=== PATIENT | male | born 1985 | race Caucasian/White ===

== ENCOUNTER 2022-12-18 20:25 | Emergency (ER) | payer OTHER ==
[2022-12-18 20:39] VITALS: RESP 16
[2022-12-18] MEDS ORDERED: SODIUM CHLORIDE 0.9% 1,000 ML IV STA ×2 (21:05)
[2022-12-18] MEDS ORDERED: THIAMINE 100 MG/ML 2 ML VIAL IM STA (21:06)
[2022-12-18] MEDS ORDERED: LORazepam 2 MG/ML INJ IV PRN ×4 (21:06)
--- NOTE | 2022-12-18 21:06 | ED ---
Seizure HPI - General Chief Complaint: Seizure Stated Complaint: Seizure Time Seen by Provider: 12/18/22 20:29 Source: patient, EMS, RN notes reviewed, old records reviewed Mode of arrival: EMS Limitations: no limitations - History of Present Illness Initial Comments: This is a 37-year-old male who presents by EMS for evaluation of seizure patient had seizure activity prior to arrival hospital. Patient's brought by EMS from [place] for evaluation. Patient has some lightheadedness dizziness weakness and hasn't felt well. MD Complaint: seizure, possible seizure -: days(s) Description of Episode: loss of consciousness, tonic-clonic movement -: second(s) Witnessed: yes - by bystander Trauma: Yes Seizure History: history of withdrawal seizures Place: home Associated Symptoms: denies other symptoms Treatments Prior to Arrival: none - Related Data Home Medications Medication Instructions Recorded Confirmed Acetaminophen [Tylenol] 650 mg PO Q4H PRN 12/18/22 12/19/22 Calcium/Magnesium/Zinc/Vitamin D 1 tab PO TID PRN 12/18/22 12/19/22 Chlorpheniramine Maleate 4 mg PO Q4H PRN 12/18/22 12/19/22 [Chlor-Trimeton] Docusate [Colace] 100 mg PO BID PRN 12/18/22 12/19/22 Hyoscyamine Sulfate [Levsin] 0.125 mg PO QID PRN 12/18/22 12/19/22 Ibuprofen [Motrin Ib] 600 mg PO Q6H PRN 12/18/22 12/19/22 LORazepam [Ativan] See Taper PO DIRECTED 12/18/22 12/19/22 Loperamide [Imodium] 4 mg PO QID PRN 12/18/22 12/19/22 Mag Hydrox/Aluminum Hyd/Simeth 30 ml PO Q4H PRN 12/18/22 12/19/22 [Mylanta Maximum Strength Liq] Magnesium Hydroxide [Milk of 2,400 mg PO BID PRN 12/18/22 12/19/22 Magnesia] Multivitamins, Thera [Multivitamin 1 tab PO DAILY 12/18/22 12/19/22 (formulary)] Thiamine [Vitamin B-1] 100 mg PO DAILY 12/18/22 12/19/22 guaiFENesin SYRUP 100MG/5ML 200 mg PO Q4H PRN 12/18/22 12/19/22 [Robitussin] ondansetron HCL [Zofran] 8 mg PO Q6H PRN 12/18/22 12/19/22 traZODone HCL [Desyrel] 50 - 150 mg PO HS PRN 12/18/22 12/19/22 Previous Rx's Medication Instructions Recorded Acetaminophen Tab [Tylenol] 650 mg PO Q6HR PRN tab 12/20/22 levETIRAcetam [Keppra] 500 mg PO Q12HR #24 tab 12/20/22 Allergies Allergy/AdvReac Type Severity Reaction Status Date / Time penicillin G Allergy Unknown Verified 12/19/22 10:23 Penicillins Allergy Swelling Verified 12/19/22 10:23 Review of Systems ROS Statement: Those systems with pertinent positive or pertinent negative responses have been documented in the HPI. ROS Other: All systems not noted in ROS Statement are negative. Past Medical History Past Medical History: No Reported History Past Surgical History: No Surgical Hx Reported Smoking Status: Current every day smoker Past Alcohol Use History: Daily General Exam Limitations: no limitations General appearance: alert, in no apparent distress Head exam: Present: atraumatic, normocephalic, normal inspection Eye exam: Present: normal appearance, PERRL, EOMI. Absent: scleral icterus, conjunctival injection, periorbital swelling ENT exam: Present: normal exam, mucous membranes moist Neck exam: Present: normal inspection. Absent: tenderness, meningismus, lymphadenopathy Respiratory exam: Present: normal lung sounds bilaterally. Absent: respiratory distress, wheezes, rales, rhonchi, stridor Cardiovascular Exam: Present: regular rate, normal rhythm, normal heart sounds. Absent: systolic murmur, diastolic murmur, rubs, gallop, clicks GI/Abdominal exam: Present: soft, normal bowel sounds. Absent: distended, t enderness, guarding, rebound, rigid Extremities exam: Present: normal inspection, full ROM, normal capillary refill. Absent: tenderness, pedal edema, joint swelling, calf tenderness Back exam: Present: normal inspection Neurological exam: Present: alert, oriented X3, CN II-XII intact Psychiatric exam: Present: normal affect, normal mood Skin exam: Present: warm, dry, intact, normal color. Absent: rash Course Vital Signs 12/18/22 12/18/22 20:26 22:58 Temperature 97.8 F 98.0 F Pulse Rate 75 73 Respiratory 16 16 Rate Blood Pressure 116/71 106/71 O2 Sat by Pulse 100 98 Oximetry - Reevaluation(s) Reevaluation #1: 12/18/22 21:08 Medical records reviewed Reevaluation #2: 12/18/22 22:53 Patient has no recurrent seizure here in the ER feels well does not want admission prefers discharge Reevaluation #3: 12/18/22 22:53 Patient informed results questions answered Reevaluation #4: 12/18/22 21:08 Was pt. sent in by a medical professional or institution (, JULIAN, MANAGER CT, urgent care, hospital, or snf...) When possible be specific @ -no Did you speak to anyone other than the patient for history (EMS, parent, family, police, friend...)? What history was obtained from this source @ -no Did you review nursing and triage notes (agree or disagree)? Why? @ -agree Are old charts reviewed (outside hosp., previous admission, EMS record, old EKG, old radiological studies, urgent care reports/EKG's, snf records)? Report findings @ -yes Differential Diagnosis (chest pain, altered mental status, abdominal pain women, abdominal pain men, vaginal bleeding, weakness, fever, dyspnea, syncope, headache, dizziness, GI bleed, back pain, seizure, CVA, palpatations, mental health, musculoskeletal)? @ -prior EKG interpreted by me (3pts min.). @ -yes X-rays interpreted by me (1pt min.). @ -no CT interpreted by me (1pt min.). @ -no U/S interpreted by me (1pt. min.). @ -no What testing was considered but not performed or refused? (CT, X-rays, U/S, labs)? Why? @ -none What meds were considered but not given or refused? Why? @ -none Did you discuss the management of the patient with other professionals (professionals i.e. JULIAN Islas, MANAGER CT, lab, RT, psych nurse, perinatal social worker, community health nurse staff, teacher, program officer, correctional case manager)? Give summary @ -no Was smoking cessation discussed for >3mins.? @ -no Was critical care preformed (if so, how long)? @ -no Were there social determinants of health that impacted care today? How? (Homelessness, low income, unemployed, alcoholism, drug addiction, transportation, low edu. Level, literacy, decrease access to med. care, care home, rehab)? @ -none Was there de-escalation of care discussed even if they declined (Discuss DNR or withdrawal of care, Hospice)? DNR status @ -no What co-morbidities impacted this encounter? (DM, HTN, Smoking, COPD, CAD, Cancer, CVA, ARF, Chemo, Hep., AIDS, mental health diagnosis, sleep apnea, morbid obesity)? @ -none Was patient admitted / discharged? Hospital course, mention meds given and route, prescriptions, significant lab abnormalities, going to OR and other pertinent info. @ - 37 male to the emergency department for evaluation withdrawal seizure. Patient has no recurrent seizure here in the ER feels well throughout ER stay. Lab testing shows normal electrolytes, no balance patient can be discharged home Discharge Undiagnosed new problem with uncertain prognosis? @ -no Drug Therapy requiring intensive monitoring for toxicity (Heparin, Nitro, Insulin, Cardizem)? @ -no Were any procedures done? @ -no Diagnosis/symptom? @ -Recurrent seizure Acute, or Chronic, or Acute on Chronic? @ -Acute Uncomplicated (without systemic symptoms) or Complicated (systemic symptoms)? @ -Complicated Side effects of treatment? @ -no Exacerbation, Progression, or Severe Exacerbation? @ -exacerbation Poses a threat to life or bodily function? How? (Chest pain, [place], [place], pneumonia, PE, COPD, DKA, ARF, appy, cholecystitis, CVA, Diverticulitis, Homicidal, Suicidal, threat to staff... and all critical care pts) @ -yes intractable seizure disorder with status epilepticus Reevaluation #5: 12/18/22 21:08 Differential Seizure: Recurrent seizure disorder, febrile seizure, alcohol withdrawal, stimulants, meningitis, encephalitis, intercranial hemorrhage, intracranial tumor, stroke, eclampsia, thyrotoxicosis, hypocalcemia, hyponatremia, hypernatremia, hypomagnesemia, psychogenic, this is not meant to be an all-inclusive list. Medical Decision Making - Medical Decision Making 37 male to the emergency department for evaluation withdrawal seizure. Patient has no recurrent seizure here in the ER feels well throughout ER stay. Lab testing shows normal electrolytes, no balance patient can be discharged home - Lab Data Result diagrams: 12/18/22 21:23 12/18/22 21:23 Lab Results 12/18/22 12/18/22 Range/Units 21:23 21:23 WBC 13.1 H (3.8-10.6) k/uL RBC 3.30 L (4.30-5.90) m/uL Hgb 12.1 L (13.0-17.5) gm/dL Hct 35.8 L (39.0-53.0) % MCV 108.5 H (80.0-100.0) fL MCH 36.6 H (25.0-35.0) pg MCHC 33.7 (31.0-37.0) g/dL RDW 13.9 (11.5-15.5) % Plt Count 193 (150-450) k/uL MPV 8.0 Neutrophils % 73 % Lymphocytes % 18 % Monocytes % 6 % Eosinophils % 1 % Basophils % 0 % Neutrophils # 9.6 H (1.3-7.7) k/uL Lymphocytes # 2.4 (1.0-4.8) k/uL Monocytes # 0.8 (0-1.0) k/uL Eosinophils # 0.1 (0-0.7) k/uL Basophils # 0.0 (0-0.2) k/uL Manual Slide Review Performed Macrocytosis Marked A Sodium 138 (137-145) mmol/L Potassium 3.8 (3.5-5.1) mmol/L Chloride 103 (98-107) mmol/L Carbon Dioxide 26 (22-30) mmol/L Anion Gap 9 mmol/L BUN 12 (9-20) mg/dL Creatinine 0.76 (0.66-1.25) mg/dL Est GFR (CKD-EPI)AfAm >90 (>60 ml/min/1.73 sqM) Est GFR (CKD-EPI)NonAf >90 (>60 ml/min/1.73 sqM) Glucose 123 H (74-99) mg/dL Calcium 9.6 (8.4-10.2) mg/dL Phosphorus 2.6 (2.5-4.5) mg/dL Magnesium 2.1 (1.6-2.3) mg/dL Total Bilirubin 0.3 (0.2-1.3) mg/dL AST 61 H (17-59) U/L ALT 38 (4-49) U/L Alkaline Phosphatase 80 (38-126) U/L Total Protein 7.5 (6.3-8.2) g/dL Albumin 4.1 (3.5-5.0) g/dL Lipase 153 (23-300) U/L Serum Alcohol <10 mg/dL - EKG Data -: EKG Interpreted by Me (EKG is sinus 72 [place] 173 QRS 74 QTc 414) Disposition Clinical Impression: Intractable seizure disorder, Epileptic seizure, generalized, Withdrawal seizures Disposition: HOME SELF-CARE Condition: Good Instructions (If sedation given, give patient instructions): Seizure/Epilepsy Discharge Instructions & Follow-Up Is patient prescribed a controlled substance at d/c from ED?: No Referrals: None,Stated [Primary Care Provider] - 1-2 days Time of Disposition: 22:50
[2022-12-18 21:58] LABS: ALT 38 U/L (4-49); AST 61 U/L (17-59); African American GFR (CKD) >90 (>60 ml/min/1.73 sqM); Albumin 4.1 g/dL (3.5-5.0); Alcohol <10 mg/dL; Alkaline Phosphatase 80 U/L (38-126); Anion Gap 9 mmol/L; Blood Urea Nitrogen 12 mg/dL (9-20); Calcium 9.6 mg/dL (8.4-10.2); Carbon Dioxide 26 mmol/L (22-30); Chloride 103 mmol/L (98-107); Glucose 123 mg/dL (74-99); Lipase 153 U/L (23-300); Magnesium 2.1 mg/dL (1.6-2.3); Non-African American GFR(CKD) >90 (>60 ml/min/1.73 sqM); Phosphorus 2.6 mg/dL (2.5-4.5); Potassium 3.8 mmol/L (3.5-5.1); Sodium 138 mmol/L (137-145); Total Bilirubin 0.3 mg/dL (0.2-1.3); Total Protein 7.5 g/dL (6.3-8.2)
[2022-12-18 22:26] LABS: Basophils % (A) 0 %; Eosinophils # (A) 0.1 k/uL (0-0.7); Eosinophils % (A) 1 %; HCT 35.8 % (39.0-53.0); HGB 12.1 gm/dL (13.0-17.5); Lymphocytes # (A) 2.4 k/uL (1.0-4.8); Lymphocytes % (A) 18 %; MCH 36.6 pg (25.0-35.0); MCHC 33.7 g/dL (31.0-37.0); MCV 108.5 fL (80.0-100.0); Macrocytosis Marked; Monocytes # (A) 0.8 k/uL (0-1.0); Monocytes % (A) 6 %; Neutrophils # (A) 9.6 k/uL (1.3-7.7); Neutrophils % (A) 73 %; Platelet Count 193 k/uL (150-450); RDW 13.9 % (11.5-15.5); WBC 13.1 k/uL (3.8-10.6)
[2022-12-18 23:03] VITALS: BP 106/71; PULSE 73; TEMP 98
[2022-12-19] MEDS ORDERED: FOLIC ACID 1 MG TAB PO SCH (09:00)
[2022-12-19] MEDS ORDERED: THIAMINE 100 MG TAB PO SCH (09:00)
[2022-12-19] MEDS ORDERED: MULTIVITAMINS, THERA 1 EACH TAB PO SCH (09:00)
== END 2022-12-18 23:03 | disposition home or self-care (01) ==
LOC: EC 20:25
DX: G40.419 Other generalized epilepsy and epileptic syndromes, intractable, without status epilepticus (principal); F17.200 Nicotine dependence, unspecified, uncomplicated; Z88.0 Allergy status to penicillin
CPT/HCPCS: 36415; 93005; 80053; 83690; 83735; 84100; 85025; 99285; 96360; 96372; G0480; J3411; 80320

== ENCOUNTER 2022-12-19 08:43 | Observation (INO) | payer OTHER ==
[2022-12-19] MEDS ORDERED: SODIUM CHLORIDE 0.9% 500 ML 500 ML IV STA (08:47)
--- NOTE | 2022-12-19 08:51 | ED ---
General Adult HPI - General Stated complaint: Seizure Time Seen by Provider: 12/19/22 08:45 Source: patient, EMS, RN notes reviewed, old records reviewed Mode of arrival: EMS Limitations: no limitations - History of Present Illness Initial comments: 37-year-old male presents emergency Department from [place] via EMS for recurrent seizure. Patient states only has seizures when he withdraws from alcohol. Patient was seen here yesterday and released was advised to start Ke ppra patient was not started on Keppra and had recurrent seizure. Patient does complain of right-sided facial injury, head injury from the seizure.. Patient states she's been on Ativan at [place] but states that is not helping. - Related Data Home Medications Medication Instructions Recorded Confirmed Acetaminophen [Tylenol] 650 mg PO Q4H PRN 12/18/22 12/18/22 Calcium/Magnesium/Zinc/Vitamin D 1 tab PO TID PRN 12/18/22 12/18/22 Chlorpheniramine Maleate 4 mg PO Q4H PRN 12/18/22 12/18/22 [Chlor-Trimeton] Docusate [Colace] 100 mg PO BID PRN 12/18/22 12/18/22 Hyoscyamine Sulfate [Levsin] 0.125 mg PO QID PRN 12/18/22 12/18/22 Ibuprofen [Motrin Ib] 600 mg PO Q6H PRN 12/18/22 12/18/22 LORazepam [Ativan] See Taper PO DIRECTED 12/18/22 12/18/22 Loperamide [Imodium] 4 mg PO QID PRN 12/18/22 12/18/22 Mag Hydrox/Aluminum Hyd/Simeth 30 ml PO Q4H PRN 12/18/22 12/18/22 [Mylanta Maximum Strength Liq] Magnesium Hydroxide [Milk of 2,400 mg PO BID PRN 12/18/22 12/18/22 Magnesia] Multivitamins, Thera [Multivitamin 1 tab PO DAILY 12/18/22 12/18/22 (formulary)] Thiamine [Vitamin B-1] 100 mg PO DAILY 12/18/22 12/18/22 guaiFENesin SYRUP 100MG/5ML 200 mg PO Q4H PRN 12/18/22 12/18/22 [Robitussin] ondansetron HCL [Zofran] 8 mg PO Q6H PRN 12/18/22 12/18/22 traZODone HCL [Desyrel] 50 - 100 mg PO HS PRN 12/18/22 12/18/22 Allergies Allergy/AdvReac Type Severity Reaction Status Date / Time penicillin G Allergy Unknown Verified 12/19/22 08:56 Penicillins Allergy Swelling Verified 12/19/22 08:56 Review of Systems ROS Statement: Those systems with pertinent positive or pertinent negative responses have been documented in the HPI. ROS Other: All systems not noted in ROS Statement are negative. Past Medical History Past Medical History: No Reported History Past Surgical History: No Surgical Hx Reported Smoking Status: Current every day smoker Past Alcohol Use History: Daily General Exam Limitations: no limitations General appearance: alert, in no apparent distress Head exam: Present: atraumatic, normocephalic. Absent: normal inspection (Abrasion, tenderness right side) Eye exam: Present: normal appearance, PERRL, EOMI. Absent: scleral icterus, conjunctival injection, periorbital swelling ENT exam: Present: normal exam, normal oropharynx, mucous membranes moist Neck exam: Present: normal inspection, full ROM. Absent: tenderness, meningismus, lymphadenopathy Respiratory exam: Present: normal lung sounds bilaterally. Absent: respiratory distress, wheezes, rales, rhonchi, stridor Cardiovascular Exam: Present: regular rate, normal rhythm, normal heart sounds. Absent: systolic murmur, diastolic murmur, rubs, gallop, clicks Neurological exam: Present: alert, oriented X3, CN II-XII intact, reflexes normal. Absent: motor sensory deficit Course Vital Signs 12/19/22 08:49 Temperature 97.9 F Pulse Rate 77 Respiratory 18 Rate Blood Pressure 109/61 O2 Sat by Pulse 100 Oximetry EKG Findings - EKG Comments: EKG Findings:: EKG performed at 8:46 sinus rhythm rate of 75 [place] 177 QRS 94 QT/QTC 380/409 - EKG Results: EKG: interpreted by ESTEFANY Medical Decision Making - Medical Decision Making Was pt. sent in by a medical professional or institution (, PA, AUTOMOTIVE HARDWARE ENGINEER, urgent care, hospital, or [facility]...) When possible be specific @ -[place] Did you speak to anyone other than the patient for history (EMS, parent, family, police, friend...)? What history was obtained from this source @ -No Did you review nursing and triage notes (agree or disagree)? Why? @ -I reviewed and agree with nursing and triage notes Were old charts reviewed (outside hosp., previous admission, EMS record, old EKG, old radiological studies, urgent care reports/EKG's, [facility] records)? Report findings @ -Reviewed laboratory studies from yesterday Differential Diagnosis (chest pain, altered mental status, abdominal pain women, abdominal pain men, vaginal bleeding, weakness, fever, dyspnea, syncope, headache, dizziness, GI bleed, back pain, seizure, CVA, palpatations, mental health, musculoskeletal)? @ -[And bend or rectal seizures EKG interpreted by me (3pts min.). @ -As above X-rays interpreted by me (1pt min.). @ -Chest x-ray shows no acute process CT interpreted by me (1pt min.). @ -[CT brain showed no acute intracranial process U/S interpreted by me (1pt. min.). @ -None done What testing was considered but not performed or refused? (CT, X-rays, U/S, labs)? Why? @ -None What meds were considered but not given or refused? Why? @ -None Did you discuss the management of the patient with other professionals (professionals i.e. , PA, AUTOMOTIVE HARDWARE ENGINEER, lab, RT, psych nurse, clinical social worker, giving officer, teacher, juvenile probation officer, rifle case repairer)? Give summary @ -No Was smoking cessation discussed for >3mins.? @ -No Was critical care preformed (if so, how long)? @ -No Were there social determinants of health that impacted care today? How? (Homelessness, low income, unemployed, alcoholism, drug addiction, transportation, low edu. Level, literacy, decrease access to med. care, long term, rehab)? @ -No Was there de-escalation of care discussed even if they declined (Discuss DNR or withdrawal of care, Hospice)? DNR status @ -No What co-morbidities impacted this encounter? (DM, HTN, Smoking, COPD, CAD, Cancer, CVA, ARF, Chemo, Hep., AIDS, mental health diagnosis, sleep apnea, morbid obesity)? @ -Alcohol abuse, seizure Was patient admitted / discharged? Hospital course, mention meds given and route, prescriptions, significant lab abnormalities, going to OR and other pertinent info. @ -Admitted patient had multiple seizures last 24 hours. Patient has been on Ativan and continues to have seizures possible from alcohol withdrawal. Patient will be admitted for neurology evaluation. Patient was given Keppra. Undiagnosed new problem with uncertain prognosis? @ -No Drug Therapy requiring intensive monitoring for toxicity (Heparin, Nitro, Insulin, Cardizem)? @ -No Were any procedures done? @ -No Diagnosis/symptom? @ -Seizures, alcohol abuse Acute, or Chronic, or Acute on Chronic? @ -Acute Uncomplicated (without systemic symptoms) or Complicated (systemic symptoms)? @ - Complicated Side effects of treatment? @ -No Exacerbation, Progression, or Severe Exacerbation? @ -No Poses a threat to life or bodily function? How? (Chest pain, [place], [place], pneumonia, PE, COPD, DKA, ARF, appy, cholecystitis, CVA, Diverticulitis, Homicidal, Suicidal, threat to staff... and all critical care pts) @ -No - Lab Data Result diagrams: 12/19/22 08:56 12/19/22 08:56 Lab Results 12/19/22 12/19/22 Range/Units 08:56 08:56 WBC 9.0 (3.8-10.6) k/uL RBC 3.14 L (4.30-5.90) m/uL Hgb 11.7 L (13.0-17.5) gm/dL Hct 34.9 L (39.0-53.0) % MCV 111.1 H (80.0-100.0) fL MCH 37.2 H (25.0-35.0) pg MCHC 33.5 (31.0-37.0) g/dL RDW 13.6 (11.5-15.5) % Plt Count 172 (150-450) k/uL MPV 7.1 Neutrophils % 69 % Lymphocytes % 20 % Monocytes % 7 % Eosinophils % 3 % Basophils % 0 % Neutrophils # 6.2 (1.3-7.7) k/uL Lymphocytes # 1.8 (1.0-4.8) k/uL Monocytes # 0.6 (0-1.0) k/uL Eosinophils # 0.3 (0-0.7) k/uL Basophils # 0.0 (0-0.2) k/uL Macrocytosis Marked A Sodium 134 L (137-145) mmol/L Potassium 4.0 (3.5-5.1) mmol/L Chloride 103 (98-107) mmol/L Carbon Dioxide 21 L (22-30) mmol/L Anion Gap 10 mmol/L BUN 10 (9-20) mg/dL Creatinine 0.64 L (0.66-1.25) mg/dL Est GFR (CKD-EPI)AfAm >90 (>60 ml/min/1.73 sqM) Est GFR (CKD-EPI)NonAf >90 (>60 ml/min/1.73 sqM) Glucose 168 H (74-99) mg/dL Calcium 8.8 (8.4-10.2) mg/dL Magnesium 1.7 (1.6-2.3) mg/dL Total Bilirubin 0.4 (0.2-1.3) mg/dL AST 60 H (17-59) U/L ALT 36 (4-49) U/L Alkaline Phosphatase 67 (38-126) U/L Total Protein 6.7 (6.3-8.2) g/dL Albumin 3.7 (3.5-5.0) g/dL Disposition Clinical Impression: Epileptic seizure, generalized, Withdrawal seizures Disposition: ADMITTED IP TO THIS [facility] Instructions (If sedation given, give patient instructions): Seizure/Epilepsy Discharge Instructions & Follow-Up Referrals: None,Stated [Primary Care Provider] - 1-2 days Time of Disposition: 10:10
[2022-12-19 09:12] LABS: Basophils % (A) 0 %; Eosinophils # (A) 0.3 k/uL (0-0.7); Eosinophils % (A) 3 %; HCT 34.9 % (39.0-53.0); HGB 11.7 gm/dL (13.0-17.5); Lymphocytes # (A) 1.8 k/uL (1.0-4.8); Lymphocytes % (A) 20 %; MCH 37.2 pg (25.0-35.0); MCHC 33.5 g/dL (31.0-37.0); MCV 111.1 fL (80.0-100.0); Macrocytosis Marked; Mean Platelet Volume 7.1; Monocytes # (A) 0.6 k/uL (0-1.0); Monocytes % (A) 7 %; Neutrophils # (A) 6.2 k/uL (1.3-7.7); Neutrophils % (A) 69 %; Platelet Count 172 k/uL (150-450); RBC 3.14 m/uL (4.30-5.90); RDW 13.6 % (11.5-15.5)
[2022-12-19 09:24] LABS: ALT 36 U/L (4-49); AST 60 U/L (17-59); African American GFR (CKD) >90 (>60 ml/min/1.73 sqM); Albumin 3.7 g/dL (3.5-5.0); Alkaline Phosphatase 67 U/L (38-126); Anion Gap 10 mmol/L; Blood Urea Nitrogen 10 mg/dL (9-20); Calcium 8.8 mg/dL (8.4-10.2); Carbon Dioxide 21 mmol/L (22-30); Chloride 103 mmol/L (98-107); Glucose 168 mg/dL (74-99); Magnesium 1.7 mg/dL (1.6-2.3); Non-African American GFR(CKD) >90 (>60 ml/min/1.73 sqM); Sodium 134 mmol/L (137-145); Total Bilirubin 0.4 mg/dL (0.2-1.3); Total Protein 6.7 g/dL (6.3-8.2)
--- NOTE | 2022-12-19 09:46 | CT ---
EXAMINATION TYPE: CT brain wo con DATE OF EXAM: 12/19/2022 COMPARISON: None HISTORY: Head injury post seizure. CT DLP: 1177 mGycm. Automated Exposure Control for Dose Reduction was Utilized. TECHNIQUE: CT scan of the head is performed without contrast. FINDINGS: There is no acute intracranial hemorrhage, mass effect, or midline shift identified. The ventricles and sulci are within normal limits in size. The globes are intact and the visualized sin uses demonstrate mild sinusitis.. IMPRESSION: No acute intracranial hemorrhage, mass effect, or midline shift is seen.
[2022-12-19] MEDS ORDERED: LORazepam 1 MG TAB PO PRN ×3 (10:10)
[2022-12-19] MEDS ORDERED: LORazepam 2 MG/ML INJ IV PRN (10:10)
[2022-12-19] MEDS ORDERED: LORazepam 0.5 MG TAB PO PRN (10:10)
[2022-12-19] MEDS ORDERED: levETIRAcetam IV 500 MG/5 ML VIAL IVP STA (10:11)
[2022-12-19] MEDS ORDERED: NALOXONE 0.4 MG/ML 1 ML VIAL IV PRN (10:12)
[2022-12-19] MEDS ORDERED: ONDANSETRON 4 MG/2 ML VIAL IVP PRN (10:12)
[2022-12-19] MEDS ORDERED: ACETAMINOPHEN TAB 325 MG TAB PO PRN (10:12)
[2022-12-19] MEDS: SODIUM CHLORIDE 0.9% 1,000 ML IV SCH ×2 (11:29→22:27)
--- NOTE | 2022-12-19 14:54 | P.HPIM ---
History of Present Illness H&P Date: 12/19/22 Patient is a 37-year-old male with history of alcohol dependence presented from outpatient rehab after recurrent seizures. His last drink was 7 days ago. He presented to rehab facility after his last drink. He has been seizure free up until yesterday when he had a seizure and came to the ER. He was subsequently discharged back to facility. He had another witnessed seizure today. He did bite the right side of his tongue, no loss of bowel or bladder. He did injure his right side of forehead. He denies any chest pain, shortness of breath, abdominal pain, nausea, vomiting, urinary or bowel complaints. He denies any recent illness, sick contacts or travel history. In the ED, temperature is 97.9, pulse 77, respiratory rate 18, blood pressure 109/61, saturating 100% on room air. Hemoglobin 11.7, macrocytosis, sodium 134, bicarb 21, creatinine 0.64, glucose 168. Head CT does not show any acute process. EKG shows normal sinus rhythm. Patient admitted for recurrent seizures. Pertinent positives and negatives as discussed in HPI, a complete review of systems was performed and all other systems are negative. Patient seen and examined at bedside. Vital signs reviewed General: nontoxic, no distress, appears at stated age Derm: warm, dry, abrasion on the right lateral forehead and nasal bridge Head: atraumatic, normocephalic, symmetric Eyes: EOMI, no lid lag, anicteric sclera, pupils equal round reactive to light ENT: Nose and ears atraumatic Neck: No thyromegaly, supple Mouth: no lip lesion, mucus membranes moist Cardiovascular: S1S2 reg, no murmur, no edema Lungs: clear to auscultation bilateral, no rhonchi, no rales, no wheeze, no accessory muscle use Abdominal: soft, nontender to palpation, no guarding, no appreciable organomegaly Ext: no gross muscle atrophy, muscle strength muscle strength 5 out of 5 in all 4 extremities, no contractures Neuro: CN II-XII grossly intact Psych: Alert, oriented, appropriate affect Assessment/Plan: Recurrent Seizures Alcohol dependence -Last drink 7 days ago -He had 1 seizure yesterday, presented to the ED and was sent back to rehab, had another witnessed seizure today -Seizure secondary to alcohol withdrawal is unlikely given no other acute alcohol withdrawal symptoms, and his last drink was 7 days ago. -Was given 5 mg of IV Keppra in the ED -Currently on Ativan IV and oral as needed based on CIWA scores -Thiamine daily -Neurology consulted -EEG ordered -Seizure precautions The patient is admitted with an anticipated less than 2 midnight stay as obse rvation status for evaluation of seizure. Surrogate decision-maker: Not listed CODE STATUS: Full code DVT prophylaxis: Patient ambulatory Anticipated discharge date: 1-[address]: Rehab A total of 55 minutes was spent on the care of this complex patient more than 50% of the time was spent in counseling and care coordination. Past Medical History Past Medical History: No Reported History History of Any Multi-Drug Resistant Organisms: None Reported Past Surgical History: No Surgical Hx Reported Smoking Status: Current every day smoker Past Alcohol Use History: Daily Medications and Allergies Home Medications Medication Instructions Recorded Confirmed Type Acetaminophen [Tylenol] 650 mg PO Q4H PRN 12/18/22 12/19/22 History Calcium/Magnesium/Zinc/Vitamin D 1 tab PO TID PRN 12/18/22 12/19/22 History Chlorpheniramine Maleate 4 mg PO Q4H PRN 12/18/22 12/19/22 History [Chlor-Trimeton] Docusate [Colace] 100 mg PO BID PRN 12/18/22 12/19/22 History Hyoscyamine Sulfate [Levsin] 0.125 mg PO QID PRN 12/18/22 12/19/22 History Ibuprofen [Motrin Ib] 600 mg PO Q6H PRN 12/18/22 12/19/22 History LORazepam [Ativan] See Taper PO DIRECTED 12/18/22 12/19/22 History Loperamide [Imodium] 4 mg PO QID PRN 12/18/22 12/19/22 History Mag Hydrox/Aluminum Hyd/Simeth 30 ml PO Q4H PRN 12/18/22 12/19/22 History [Mylanta Maximum Strength Liq] Magnesium Hydroxide [Milk of 2,400 mg PO BID PRN 12/18/22 12/19/22 History Magnesia] Multivitamins, Thera [Multivitamin 1 tab PO DAILY 12/18/22 12/19/22 History (formulary)] Thiamine [Vitamin B-1] 100 mg PO DAILY 12/18/22 12/19/22 History guaiFENesin SYRUP 100MG/5ML 200 mg PO Q4H PRN 12/18/22 12/19/22 History [Robitussin] ondansetron HCL [Zofran] 8 mg PO Q6H PRN 12/18/22 12/19/22 History traZODone HCL [Desyrel] 50 - 150 mg PO HS PRN 12/18/22 12/19/22 History Allergies Allergy/AdvReac Type Severity Reaction Status Date / Time penicillin G Allergy Unknown Verified 12/19/22 10: Penicillins Allergy Swelling Verified 12/19/22 10:23 Physical Exam Vitals: Vital Signs Temp Pulse Resp BP Pulse Ox 12/19/22 14:00 81 18 90/52 97 12/19/22 08:49 97.9 F 77 18 109/61 100 Intake and Output 12/18/22 12/19/22 12/19/22 22:59 06:59 14:59 Other: Weight 81.647 kg Results CBC & Chem 7: 12/19/22 08:56 12/19/22 08:56 Labs: Abnormal Lab Results - Last 24 Hours (Table) 12/19/22 12/19/22 Range/Units 08:56 08:56 RBC 3.14 L (4.30-5.90) m/uL Hgb 11.7 L (13.0-17.5) gm/dL Hct 34.9 L (39.0-53.0) % MCV 111.1 H (80.0-100.0) fL MCH 37.2 H (25.0-35.0) pg Macrocytosis Marked A Sodium 134 L (137-145) mmol/L Carbon Dioxide 21 L (22-30) mmol/L Creatinine 0.64 L (0.66-1.25) mg/dL Glucose 168 H (74-99) mg/dL AST 60 H (17-59) U/L
[2022-12-19] MEDS: NICOTINE 21MG/24HR PATCH TRANSDERM SCH (16:37)
--- NOTE | 2022-12-19 17:24 | P.CNNES ---
History of Present Illness Consult date: 12/19/22 Requesting physician: Omega Esteves Reason for Consult: Seizures History of Present Illness: Patient is a 37-year-old male with history of alcoholism, marijuana use, came to the hospital by ambulance today at 8:43 AM for seizure. As per EMS flow sheet, when they arrived, patient was sitting in a wheelchair with an abrasion to his forehead. Patient was sluggish to respond but alert and oriented 4 but missing part of the morning. Patient was witnessed having seizure that lasted less than a minute. Patient denied any chest pain shortness of breath or dizziness. Patient's vitals at the scene was blood pressure 114/63, pulse rate 89 respirations 16, saturation 98%, blood glucose 133. Patient at present tells me that he has history of heavy drinking. He had a seizure in fall of 2021, when he stopped drinking alcohol for a week and he had a seizure. He was at [place] with his family, when he had a seizure. EMS was called, he was treated in the back of the ambulance and released. He was fine until yesterday, when he had a seizure. Patient states that he had the last drink on 12/13/2022. That day he went to [place] to get alcohol rehab. He had a seizure yesterday morning, and also had a seizure this morning. So in total, he had 3 seizures in his lifetime. He did bite his ton eleni, but didn't lose control of urine. Patient's blood test shows normal WBC, hemoglobin 11.7, with elevated MCV 111.1, platelets 172. Sodium 134 potassium is normal, renal functions is normal, AST 60, ALT 36. Blood alcohol level was < 10 on 12/18/2022. CT head showed no acute to clear process. I personally reviewed CT head and agree with the findings. On my review, there is partial opacification of the left sphenoid sinus. Some new causal thickening of the left maxillary sinus. Patient takes trazodone 50-150 mg at bedtime, thiamine, multivitamins, lorazepam when necessary. Patient states he drinks a fifth of vodka a day for last 20 years. Patient states that he does smoke marijuana sometimes, but does not do any IV drugs. Review of Systems Constitutional: Denies chills, Denies fever Eyes: denies blurred vision, denies diplopia, denies pain Ears: deny: decreased hearing, ear discharge Ears, nose, mouth and throat: Reports headache, Denies nasal congestion, Denies sore throat Cardiovascular: Denies chest pain, Denies shortness of breath Respiratory: Denies cough, Denies excessive sputum Gastrointestinal: Reports diarrhea, Reports vomiting (When stopped drinking a week ago), Denies abdominal pain, Denies nausea Genitourinary: Denies incontinence, Denies urinary frequency Musculoskeletal: Denies low back pain, Denies myalgias, Denies neck pain Integumentary: Denies pruritus, Denies rash Neurological: Reports as per HPI Psychiatric: Denies anxiety, Denies depression Endocrine: Denies fatigue, Denies weight change Past Medical History Past Medical History: No Reported History History of Any Multi-Drug Resistant Organisms: None Reported Past Surgical History: No Surgical Hx Reported Smoking Status: Current every day smoker Past Alcohol Use History: Daily Medications and Allergies Home Medications Medication Instructions Recorded Confirmed Type Acetaminophen [Tylenol] 650 mg PO Q4H PRN 12/18/22 12/19/22 History Calcium/Magnesium/Zinc/Vitamin D 1 tab PO TID PRN 12/18/22 12/19/22 History Chlorpheniramine Maleate 4 mg PO Q4H PRN 12/18/22 12/19/22 History [Chlor-Trimeton] Docusate [Colace] 100 mg PO BID PRN 12/18/22 12/19/22 History Hyoscyamine Sulfate [Levsin] 0.125 mg PO QID PRN 12/18/22 12/19/22 History Ibuprofen [Motrin Ib] 600 mg PO Q6H PRN 12/18/22 12/19/22 History LORazepam [Ativan] See Taper PO DIRECTED 12/18/22 12/19/22 History Loperamide [Imodium] 4 mg PO QID PRN 12/18/22 12/19/22 History Mag Hydrox/Aluminum Hyd/Simeth 30 ml PO Q4H PRN 12/18/22 12/19/22 History [Mylanta Maximum Strength Liq] Magnesium Hydroxide [Milk of 2,400 mg PO BID PRN 12/18/22 12/19/22 History Magnesia] Multivitamins, Thera [Multivitamin 1 tab PO DAILY 12/18/22 12/19/22 History (formulary)] Thiamine [Vitamin B-1] 100 mg PO DAILY 12/18/22 12/19/22 History guaiFENesin SYRUP 100MG/5ML 200 mg PO Q4H PRN 12/18/22 12/19/22 History [Robitussin] ondansetron HCL [Zofran] 8 mg PO Q6H PRN 12/18/22 12/19/22 History traZODone HCL [Desyrel] 50 - 150 mg PO HS PRN 12/18/22 12/19/22 History Acetaminophen Tab [Tylenol] 650 mg PO Q6HR PRN tab 12/20/22 Rx levETIRAcetam [Keppra] 500 mg PO Q12HR #6 tab 12/20/22 Rx Allergies Allergy/AdvReac Type Severity Reaction Status Date / Time penicillin G Allergy Unknown Verified 12/19/22 10: Penicillins Allergy Swelling Verified 12/19/22 10: Physical Examination - Vital Signs Vital Signs: Vital Signs Temp Pulse Resp BP Pulse Ox 12/19/22 08:49 97.9 F 77 18 109/61 100 Intake and Output 12/18/22 12/19/22 12/19/22 22:59 06:59 14:59 Other: Weight 81.647 kg Patient is a young male, in no acute distress. Patient is alert awake oriented to time place and person. Speech and language functions are normal. Patient can name and repeat very well. No aphasia or dy sarthria. Attention, concentration and fund of knowledge is adequate. On cranial nerve examination, pupils are equal, round and reacting to light, visual dockery are full on confrontation, with no neglect on double simultaneous stimulation. Extraocular muscles are intact with no nystagmus. Face is symmetric, tongue protrudes to the midline. Palatal elevation and sensation normal, hearing and shoulder shrug normal, facial sensation normal. He has evidence of tongue bite pascual on the right side. On muscle strength testing, there is no pronator drift and the strength is normal in arms and legs distally and proximally. Deep tendon reflexes are symmetric 1+ and plantars downgoing. Sensory to touch is equal with no neglect on double simultaneous stimulation. Cerebellar function showed no ataxia for [id number] testing. No dysdiadochokinesia. No ataxia for [id number]-gn-[id number] testing on either side. Tone and bulk of muscles normal. Patient has mild fine tremors of outstretched hands. Gait deferred.. On general examination, there is no carotid bruit or murmur, S1-S2 audible. Chest is clear on consultation. Abdomen is soft nontender. No organomegaly, bowel sounds present. Peripheral pulses are present. No edema. He has some abrasions on the nose, right forehead from the seizure. Results - Laboratory Findings CBC and BMP: 12/19/22 08:56 12/19/22 08:56 Abnormal Lab Findings: Abnormal Labs 12/19/22 12/19/22 08:56 08:56 RBC 3.14 L Hgb 11.7 L Hct 34.9 L MCV 111.1 H MCH 37.2 H Macrocytosis Marked A Sodium 134 L Carbon Dioxide 21 L Creatinine 0.64 L Glucose 168 H AST 60 H Assessment and Plan Assessment: * Seizure disorder, most likely provoked due to alcohol withdrawal. * History of alcohol withdrawal seizure in follow-up 2021. * History of alcoholism * Marijuana use Plan: * Patient had 2 seizures since stopping alcohol on 12/13/2022. His seizures are likely due to alcohol withdrawal. * Patient will be placed on short-term Keppra, 500 mg twice a day for 14 days. Thereafter he can stop Keppra. * EEG was performed, we will review the results when available, as the data was not transferred to the reading station due to Wifi issue with system. * Patient informed of [place] state law of no driving unless seizure free for 6 months, climbing ladders, operating dangerous machinery or unsupervised swimming. * Patient will be clear for discharge back to [facility] in the morning, if he remains seizure free overnight. * Patient strongly counseled about abstinence from alcoholism. Patient wants to go back to [place] as soon as possible. * Thank you for the consult.
[2022-12-19 19:13] LABS: Amphetamine Screen,Urine Not Detected (NotDetected); Barbiturate Screen,Urine Not Detected (NotDetected); Benzodiazepines Screen,Urine Detected (NotDetected); Cocaine Screen,Urine Not Detected (NotDetected); Methadone Screen, Urine Not Detected (NotDetected); Opiate Screen,Urine Not Detected (NotDetected); Oxycodone Screen, Urine Not Detected (NotDetected); Phencyclidine Screen,Urine Not Detected (NotDetected); Tricyclic Antidepressant,Urine Not Detected (NotDetected); Urn Cannabinoid Scrn Detected (NotDetected)
[2022-12-19] MEDS: levETIRAcetam 500 MG TAB PO SCH (19:43)
[2022-12-19] MEDS ORDERED: traZODone HCL 50 MG TAB PO SCH (21:00)
[2022-12-20] MEDS: levETIRAcetam 500 MG TAB PO SCH (08:08)
[2022-12-20] MEDS: NICOTINE 21MG/24HR PATCH TRANSDERM SCH (08:08)
[2022-12-20 08:52] VITALS: BP 125/83; PULSE 66; RESP 16; TEMP 98.2
[2022-12-20] MEDS ORDERED: THIAMINE 100 MG TAB PO SCH (09:00)
--- NOTE | 2022-12-20 09:25 | EEG ---
ELECTROENCEPHALOGRAM REPORT PREAMBLE: This is a 37-year-old male with seizure. The patient has history of alcoholism. EEG FINDINGS: This is a 21-channel digital EEG recorded with video component, utilizing 10/20 international system with referential and bipolar montages. Background consists of well developed, well regulated moderate voltage activity in 8-9 hertz alpha. Background is posterior dominant and reactive to eye opening and closing. Photic driving response was not seen. Drowsiness was seen with appearance of bilaterally symmetric theta frequency rhythm. Stage 2 sleep was attained with presence of vertex waves and sleep spindles. No focal or generalized epileptiform activity was seen. IMPRESSION: This is a normal EEG during wakefulness, drowsiness, and stage 2 sleep. No focal, lateralized, or epileptiform activity was seen. MMODL / IJN: [id number] /
--- NOTE | 2022-12-20 11:04 | P.PN ---
Subjective Progress Note Date: 12/20/22 Patient was seen for a follow-up. Patient is stable overnight. No further seizures. He still has slight tremors of outstretched hands. Patient has history of drinking a fifth of vodka a day for last 20 years. Objective - Vital Signs Vital signs: Vital Signs Temp 98.2 F 12/20/22 07:00 Pulse 66 12/20/22 07:00 Resp 16 12/20/22 07:00 BP 125/83 12/20/22 07:00 Pulse Ox 100 12/20/22 07:00 FiO2 Intake & Output 12/19/22 12/20/22 12/20/22 18:59 06:59 18:59 Weight 81.647 kg Other: Voiding Method Toilet # Voids 1 3 - Exam Mental status, speech and language functions, cranial nerves are normal. He still has very mild tremors of outstretched hands. - Labs CBC & Chem 7: 12/19/22 08:56 12/19/22 08:56 Labs: Abnormal Lab Results - Last 24 Hours (Table) 12/19/22 Range/Units 17:32 U Benzodiazepines Scrn Detected H (NotDetected) U Marijuana (THC) Screen Detected H (NotDetected) Assessment and Plan Assessment: * Seizure disorder, most likely provoked due to alcohol withdrawal. * History of alcohol withdrawal seizure in the fall of 2021. * History of alcoholism * Marijuana use Plan: * Patient had 2 seizures since stopping alcohol on 12/13/2022. His seizures are likely due to alcohol withdrawal. * Patient will be placed on short-term Keppra, 500 mg twice a day for 14 days. Thereafter he can stop Keppra. * EEG was normal during wakefulness, drowsiness and stage II sleep. No epilep tiform activity was seen. * Patient informed of [place] state law of no driving unless seizure free for 6 months, climbing ladders, operating dangerous machinery or unsupervised swimming. * Patient strongly counseled about abstinence from alcoholism. Patient wants to go back to [facility] as soon as possible. * Neurologically clear for discharge to [facility] rehab.
--- NOTE | 2022-12-20 15:16 | P.DS ---
Providers Date of admission: 12/19/22 10:05 Expected date of discharge: 12/20/22 Attending physician: Chadd Sprague MD Consults: 12/19/22 10:11 Consult Physician Urgent Consulting Provider: Dat Dickson Consult Reason/Comments: Seizures Do you want consulting provider notified?: Yes Primary care physician: Stated None Hospital Course: Recurrent Seizures Alcohol dependence Patient is a 37-year-old male with history of alcohol dependence presented from outpatient rehab after recurrent seizures. In the ED, temperature is 97.9, pulse 77, respiratory rate 18, blood pressure 109/61, saturating 100% on room air. Hemoglobin 11.7, macrocytosis, sodium 134, bicarb 21, creatinine 0.64, glucose 168. Head CT does not show any acute process. EKG shows normal sinus rhythm. Patient admitted for recurrent seizures. Pt seen by Neurology who recommended 14 days of keppra. Pt was doing well on day following admission and was discharged back to [facility] for rehab. I spent 32 minutes coordinating this discharge on 01/16 Gen: awake, alert HEENT: normocephalic, atraumatic, good hearing acuity, moist mucous membranes Resp: good air exchange, breathing comfortably with no accessory muscle use CVS: good distal perfusion x 4, GI: soft, NTTP, ND : no SPT, no CVAT, loyola catheter not present MSK: no pitting edema, no clubbing Neuro: non-focal, moving all extremities Psych: cooperative, euthymic mood Patient Condition at Discharge: Good Plan - Discharge Summary Discharge Rx Participant: Yes New Discharge Prescriptions: New Acetaminophen Tab [Tylenol] 650 mg PO Q6HR PRN tab PRN Reason: Mild Pain Or Fever > 100.5 levETIRAcetam [Keppra] 500 mg PO Q12HR #24 tab Continue traZODone HCL [Desyrel] 50 - 150 mg PO HS PRN PRN Reason: Insomnia Acetaminophen [Tylenol] 650 mg PO Q4H PRN PRN Reason: Fever And/ Or Pain Ibuprofen [Motrin Ib] 600 mg PO Q6H PRN PRN Reason: Pain Magnesium Hydroxide [Milk of Magnesia] 2,400 mg PO BID PRN PRN Reason: Constipation Chlorpheniramine Maleate [Chlor-Trimeton] 4 mg PO Q4H PRN PRN Reason: Allergy Symptoms Calcium/Magnesium/Zinc/Vitamin D 1 tab PO TID PRN PRN Reason: Muscle Cramps ondansetron HCL [Zofran] 8 mg PO Q6H PRN PRN Reason: Nausea And Vomiting Thiamine [Vitamin B-1] 100 mg PO DAILY Multivitamins, Thera [Multivitamin (formulary)] 1 tab PO DAILY Mag Hydrox/Aluminum Hyd/Simeth [Mylanta Maximum Strength Liq] 30 ml PO Q4H PRN PRN Reason: Indigestion Loperamide [Imodium] 4 mg PO QID PRN PRN Reason: Diarrhea Hyoscyamine Sulfate [Levsin] 0.125 mg PO QID PRN PRN Reason: Gi Upset guaiFENesin SYRUP 100MG/5ML [Robitussin] 200 mg PO Q4H PRN PRN Reason: Cough Docusate [Colace] 100 mg PO BID PRN PRN Reason: Constipation LORazepam [Ativan] See Taper PO DIRECTED Discharge Medication List Acetaminophen [Tylenol] 650 mg PO Q4H PRN 12/18/22 [History] Calcium/Magnesium/Zinc/Vitamin D 1 tab PO TID PRN 12/18/22 [History] Chlorpheniramine Maleate [Chlor-Trimeton] 4 mg PO Q4H PRN 12/18/22 [History] Docusate [Colace] 100 mg PO BID PRN 12/18/22 [History] Hyoscyamine Sulfate [Levsin] 0.125 mg PO QID PRN 12/18/22 [History] Ibuprofen [Motrin Ib] 600 mg PO Q6H PRN 12/18/22 [History] LORazepam [Ativan] See Taper PO DIRECTED 12/18/22 [History] Loperamide [Imodium] 4 mg PO QID PRN 12/18/22 [History] Mag Hydrox/Aluminum Hyd/Simeth [Mylanta Maximum Strength Liq] 30 ml PO Q4H PRN 12/18/22 [History] Magnesium Hydroxide [Milk of Magnesia] 2,400 mg PO BID PRN 12/18/22 [History] Multivitamins, Thera [Multivitamin (formulary)] 1 tab PO DAILY 12/18/22 [History] Thiamine [Vitamin B-1] 100 mg PO DAILY 12/18/22 [History] guaiFENesin SYRUP 100MG/5ML [Robitussin] 200 mg PO Q4H PRN 12/18/22 [History] ondansetron HCL [Zofran] 8 mg PO Q6H PRN 12/18/22 [History] traZODone HCL [Desyrel] 50 - 150 mg PO HS PRN 12/18/22 [History] Acetaminophen Tab [Tylenol] 650 mg PO Q6HR PRN tab 12/20/22 [Rx] levETIRAcetam [Keppra] 500 mg PO Q12HR #24 tab 12/20/22 [Rx] Follow up Appointment(s)/Referral(s): None,Stated [Primary Care Provider] - 1-2 days Patient Instructions/Handouts: Seizure/Epilepsy Discharge Instructions & Follow-Up Activity/Diet/Wound Care/Special Instructions: Discharging RN: call [facility] [phone] to arrange for a ride at discharge. Discharge Disposition: HOME SELF-CARE
== END 2022-12-20 12:38 | disposition home or self-care (01) ==
LOC: EC 08:43 → 6NMEDSUR 10:05
PROVIDERS: ADMIT Student in an Organized Health Care Education/Training Program; ATTEND Student in an Organized Health Care Education/Training Program
DX: G40.409 Other generalized epilepsy and epileptic syndromes, not intractable, without status epilepticus (principal); F10.239 Alcohol dependence with withdrawal, unspecified; F12.90 Cannabis use, unspecified, uncomplicated; F17.200 Nicotine dependence, unspecified, uncomplicated; Z88.0 Allergy status to penicillin
CPT/HCPCS: 96361; 96374; 99285; 36415; 95816; 93005; 80053; 82607; 82746; 83735; 85025; 84146; 80306; 70450; G0378 ×2; S4990 ×2; J1953